=== PATIENT | female | born 1995 | race Caucasian/White ===

== ENCOUNTER 2019-02-15 19:09 | Emergency (ER) | payer BC ==
[~2019-02-15] VITALS: Ht 167.6 cm; Wt 63.5 kg
[2019-02-15 19:16] VITALS: BP 104/70
--- NOTE | 2019-02-15 19:20 | NUR ---
ED Nurse Note: Patient walked into ED c/o UTI for 1 week. patient reports she is taking Cipro which is not working. patient is alert awake x4 ambulatory.
--- NOTE | 2019-02-15 19:40 | NUR ---
ED Nurse Note: ua sent to lab
[2019-02-15 20:04] LABS: APPEARANCE,URINE CLEAR; BILIRUBIN, URINE NEGATIVE (NEGATIVE); COLOR,URINE PALE YELLOW; GLUCOSE, URINE (UA) NEGATIVE (NEGATIVE); KETONES,URINE 2+ (NEGATIVE); LEUKOCYTE ESTERASE ,URINE 1+ (NEGATIVE); NITRITE,URINE NEGATIVE (NEGATIVE); PH,URINE 6 (4.5-8.0); PROTEIN,URINE NEGATIVE (NEGATIVE); UROBILINOGEN,URINE NORMAL MG/DL (0.0-1.0)
--- NOTE | 2019-02-15 20:23 | Emergency Room Report ---
History of Present Illness General Chief Complaint: Female Urogenital Problems Source: Patient Present Illness HPI 23 YO Female presents to the ED C.O Urinary frequency, 6/10 in severity dysuria , and hematuria x 5 days. Pt. is rx'd Cipro by her PMD, but she states her symptoms are not improving and she states Cipro has not worked for her in the past. Pt. reports hx of frequent UTI's. Denies fevers or chills. Denies , vaginal d/c or STI. Pt. denies Nausea or vomiting. Denies abdominal tenderness. She reports low back aches. Allergies: Coded Allergies: PENICILLINS (Verified Allergy, Unknown, 02/15/19) Patient History Past Medical History: see triage record Past Surgical History: none Pertinent Family History: none Last Menstrual Period: CONTROL Now: No Reviewed Nursing Documentation: PMH: Agreed; PSxH: Agreed Nursing Documentation-PMH Past Medical History: No History, Except For Hx Diabetes: Yes Review of Systems All Other Systems: negative except mentioned in HPI Physical Exam Vital Signs Date Time Temp Pulse Resp B/P (MAP) Pulse Ox O2 Delivery O2 Flow Rate FiO2 02/15/19 19:16 98.8 80 16 104/70 (81) 100 Room Air Sp02 EP Interpretation: reviewed, normal General Appearance: no apparent distress, alert, GCS 15, non-toxic Head: normocephalic, atraumatic Eyes: bilateral eye normal inspection, bilateral eye PERRL ENT: hearing grossly normal, normal voice Neck: full range of motion Respiratory: chest non-tender, lungs clear, normal breath sounds, speaking full sentences Cardiovascular #1: regular rate, rhythm Gastrointestinal: normal bowel sounds, non tender, soft, non-distended, no guarding Genitourinary: normal inspection, no CVA tenderness Musculoskeletal: back normal, gait/station normal, normal range of motion, non- tender Neurologic: alert, oriented x3, responsive, motor strength/tone normal, sensory intact, speech normal, grossly normal Psychiatric: judgement/insight normal Lymphatic: no adenopathy Medical Decision Making PA Attestation Dr. Terrazas is my supervising Physician whom patient management has been discussed with. Diagnostic Impression: Primary Impression: UTI (urinary tract infection) Qualified Codes: N30.01 - Acute cystitis with hematuria ER Course 23 YO Female presents to the ED C.O Urinary frequency, 6/10 in severity dysuria , and hematuria x 5 days. Pt. is rx'd Cipro by her PMD, but she states her symptoms are not improving and she states Cipro has not worked for her in the past. Pt. reports hx of frequent UTI's. Denies fevers or chills. Denies , vaginal d/c or STI. Pt. denies Nausea or vomiting. Denies abdominal tenderness. She reports low back aches. Ddx considered but are not limited to UTi , Pyelo, STI, Stone, Cystitis Vital signs: are WNL, pt. is afebrile H&PE are most consistent with UTI ORDERS: - UA labs are attached - Few bacteria and hematuria, pt. is symptomatic so will treat. ED INTERVENTIONS: None required at this time. DISCHARGE: At this time pt. is stable for d/c to home. Will provide printed patient care instructions, and any necessary prescriptions. Care plan and follow up instructions have been discussed with the patient prior to discharge. Labs Test 02/15/19 19:34 Urine Color Pale yellow Urine Appearance Clear Urine pH 6 (4.5-8.0) Urine Specific [place] 1.010 (1.005-1.035) Urine Protein Negative (NEGATIVE) Urine Glucose (UA) Negative (NEGATIVE) Urine Ketones 2+ (NEGATIVE) Urine Blood Negative (NEGATIVE) Urine Nitrite Negative (NEGATIVE) Urine Bilirubin Negative (NEGATIVE) Urine Urobilinogen Normal MG/DL (0.0-1.0) Urine Leukocyte Esterase 1+ (NEGATIVE) Urine RBC 0-2 /HPF (0 - 2) Urine WBC 0-2 /HPF (0 - 2) Urine Squamous Epithelial Cells Few /LPF (NONE/OCC) Urine Bacteria Few /HPF (NONE) Last Vital Signs Date Time Temp Pulse Resp B/P (MAP) Pulse Ox O2 Delivery O2 Flow Rate FiO2 02/15/19 19:16 98.8 86 16 104/70 100 Room Air Disposition: HOME, SELF-CARE Condition: Stable Scripts Phenazopyridine Hcl* (PYRIDIUM*) 100 Mg Tablet 100 MG ORAL THREE TIMES A DAY for 3 Days, #9 TAB Prov: Kayleen Bernal 02/15/19 Nitrofurantoin Monohyd/M-Cryst* (MACROBID 100 MG*) 100 Mg Capsule 100 MG ORAL EVERY 12 HOURS for 5 Days, #10 CAP Prov: Kayleen Bernal 02/15/19 Patient Instructions: Urinary Tract Infection Additional Instructions: Take medications as directed. Follow up with a Primary Care Provider in 3-5 days, even if your symptoms have resolved. --Please review list of primary care clinics, if you do not already have a primary care provider Return sooner to ED if new symptoms occur, or current symptoms become worse. - Please note that this Emergency Department Report was dictated using [employer] engineer technology software, occasionally this can lead to erroneous entry secondary to interpretation by the dictation equipment. Kayleen Bernal Feb 15, 2019 20:23
[2019-02-15] MEDS ORDERED: NITROFURANTOIN100 M2 ORAL (20:24)
[2019-02-15] MEDS ORDERED: PHENAZOPYRIDIN100 MG ORAL (20:24)
[2019-02-15 20:43] VITALS: BP 104/70
--- NOTE | 2019-02-15 20:47 | NUR ---
ER DISCHARGE NOTE: Patient is cleared to be discharged per [facility]IA EDGAR, pt is aox4, on room air, with stable vital signs. pt was given dc and prescription instructions, pt was able to verbalize understanding, pt id band removed without complications. pt is able to ambulate with steady gait. pt took all belongings.
== END 2019-02-15 20:43 | disposition home or self-care (01) ==
LOC: EMR 19:51
DX: N30.01 Acute cystitis with hematuria (principal); E11.9 Type 2 diabetes mellitus without complications; Z88.0 Allergy status to penicillin; Z79.3 Long term (current) use of hormonal contraceptives; M54.5 Low back pain
CPT/HCPCS: 81003; 99282